=== PATIENT | male | born 1975 | race Caucasian/White ===

== ENCOUNTER → 2020-12-05 12:27 | Outpatient (CLI) | payer MEDICAID, SELFPAY ==
--- NOTE | 2020-12-05 12:31 | US_ITS ---
STUDY: RENAL ULTRASOUND - COMPLETE REASON FOR EXAM: Male, 45 years old. CKD2 status post left nephrectomy. TECHNIQUE: Ultrasound evaluation of the kidneys was performed with real-time and static weems-scale imaging. COMPARISON: None. FINDINGS: RIGHT KIDNEY: Normal location of the right kidney, which is normal in size. The right kidney measures 13.5 cm x 6.1 cm x 4.4 cm. There is a normal cortex of the right kidney. The renal cortex measures 1.5 cm. There is no right renal mass or cyst. There are no right renal calculi. There is no right hydronephrosis. DISTAL RIGHT URETER: There is non-visualization of the distal right ureter. There is no demonstrated right ureterovesical junction calculus. There is a visualized right ureteral jet. LEFT KIDNEY: The patient is status post left nephrectomy. BLADDER: The distended urinary bladder has a volume of 109 ml. There is a normal wall thickness of the distended urinary bladder. There is no demonstrated mass within the urinary bladder. There are no demonstrated bladder calculi. US/Kidney and Bladder IMPRESSION: Status post left nephrectomy. The right kidney is unremarkable. Electronically Signed: Kemal Vásquez MD at 14:54 EST , Service support ,
== END ==
PROVIDERS: Referring Provider Internal Medicine Nephrology; Visit Provider Internal Medicine Nephrology
DX: N18.2 Chronic kidney disease, stage 2 (mild) (principal); Z90.5 Acquired absence of kidney
CPT/HCPCS: 76770